=== PATIENT | female | born 1975 | race Two or more races ===

== ENCOUNTER 2024-08-21 10:16 | Emergency (ER) | payer OTHER ==
[~2024-08-21] VITALS: Ht 154.9 cm; Wt 59.0 kg
[2024-08-21] MEDS ORDERED: LANTUS SOL100 UNIT/1 (10:23)
[2024-08-21] MEDS ORDERED: HUMALOG100 UNIT/2 (10:24)
[2024-08-21 11:02] LABS: BASO % 0.2 % (0.1-1.2); EOS # 0.16 (0.04-0.54); EOS % 2.0 % (0.7-7.0); LYMPH # 2.62 (1.18-3.74); LYMPH % 32.6 % (19.3-53.1); MEAN PLATELET VOLUME 11.10 fl (9.4-12.4); MONO # 0.44 (0.24-0.82); MONO % 5.5 % (4.7-12.5); NEUT # 4.77 (1.56-6.13); NEUT % 59.5 % (34.0-71.1); RED CELL DISTRIBUTION WIDTH 13.0 % (11.6-14.4)
[2024-08-21 11:26] LABS: ALT/SGPT 18.0 U/L (12-78); AST/SGOT 8.0 U/L (15-37); BILIRUBIN TOTAL 0.33 mg/dL (0.3-1.2); BUN CREA RATIO 10.0 (7.0-25.0); CREATININE SERUM 0.89 mg/dL (0.55-1.02); GFR 66.87; GLOBULINA 4.8 G/DL (2.4-3.5); GLUCOSE FASTING 170.0 mg/dL (65-100); OSMOLALITY SERUM 280.0 MOSM/KG (275-295)
[2024-08-21 11:28] LABS: COVID-19 AG NEGATIVE (NEGATIVE)
[2024-08-21] MEDS ORDERED: OSEL75CA PO (11:38)
[2024-08-21] MEDS ORDERED: TUSNEL LIQUID178 ML PO (11:38)
== END 2024-08-21 11:52 | disposition home or self-care (01) ==
LOC: ER 10:16
PROVIDERS: General Practice
DX: J10.1 Influenza due to other identified influenza virus with other respiratory manifestations (principal); I11.9 Hypertensive heart disease without heart failure; I10 Essential (primary) hypertension; Z20.822 Contact with and (suspected) exposure to COVID-19; E11.9 Type 2 diabetes mellitus without complications; Z79.4 Long term (current) use of insulin